=== PATIENT | female | born 1955 | race Caucasian/White ===

== ENCOUNTER 2021-07-16 19:31 | Emergency (ER) | payer OTHER ==
[~2021-07-16] VITALS: Ht 167.6 cm; Wt 69.4 kg
[2021-07-16 19:46] VITALS: BP 104/62
--- NOTE | 2021-07-16 22:30 | NUR ---
Dr. Espinosa examining patient.
[2021-07-16] MEDS ORDERED: NACL 0.9% 1,000 ML IV ONE (22:35)
[2021-07-16] MEDS ORDERED: KETOROLAC 30 MG/ML VIAL IVP ONE (22:35)
--- NOTE | 2021-07-16 23:11 | NUR ---
XRAY AT BEDSIDE Addendum: 07/17/21 at 0034 by MARIA FERNANDA Amendment werner in [facility] - 07/17/21 at 0035 by MARIA FERNANDA PT TO CAT SCAN
[2021-07-16 23:42] LABS: HEMATOCRIT 43.1 % (36-48); HEMOGLOBIN 14.4 g/dL (12.0-16.0); MEAN CORPUSCULAR HEMOGLOBIN 30 pg (27-31); MEAN CORPUSCULAR HGB CONC 33 g/dL (33-37); MEAN CORPUSCULAR VOLUME 90.8 fL (80-94); PLATELET COUNT (AUTO) 113 K/uL (140-450); RED BLOOD CELL COUNT(AUTO) 4.75 MIL/uL (4.20-5.40); RED CELL DISTRIBUTION WIDTH 13.8 % (11.6-13.7); WHITE BLOOD COUNT (AUTO) 8.3 K/uL (4.8-10.8)
[2021-07-17 00:06] LABS: ALBUMIN 3.4 g/dL (3.4-5.0); ANION GAP 9.4 (8-16); CREATININE 0.9 mg/dL (0.6-1.3); POTASSIUM 4.4 mmol/L (3.5-5.1); TOTAL BILIRUBIN 0.5 mg/dL (0.0-1.0)
[2021-07-17 00:11] LABS: EOSINOPHILS % (MANUAL) 1 % (0-4); LYMPHOCYTES % (MANUAL) 35 % (20-46); MONOCYTES % (MANUAL) 13 % (5-12)
--- NOTE | 2021-07-17 01:02 | NUR ---
PT UP TO BATHROOM GAIT STEADY
--- NOTE | 2021-07-17 01:40 | NUR ---
PT RESTING IN BED. PENDING ALL LAB RESULTS. RESP EVEN AND UNLABORED. SIDE RAILS UP X1.
[2021-07-17 01:56] LABS: APPEARANCE,URINE CLEAR (CLEAR); BILIRUBIN,URINE NEGATIVE (NEGATIVE); BLOOD, URINE TRACE-I (NEGATIVE); COLOR,URINE YELLOW (YELLOW); LEUKOCYTE ESTERASE ,URINE NEGATIVE (NEGATIVE); NITRITE, URINE NEGATIVE (NEGATIVE); UGLUCOSE NEGATIVE (NEGATIVE)
[2021-07-17 02:13] LABS: RBC,URINE 0-5 /HPF (0-5); WBC,URINE 0-5 /HPF (0-5)
[2021-07-17] MEDS ORDERED: NAPR-54 PO (02:26)
[2021-07-17 02:37] VITALS: BP 93/44
--- NOTE | 2021-07-17 02:38 | NUR ---
Chart checked and completed.
== END 2021-07-17 02:37 | disposition home or self-care (01) ==
LOC: MED 19:31
DX: B34.9 Viral infection, unspecified (principal); E11.9 Type 2 diabetes mellitus without complications; Z79.1 Long term (current) use of non-steroidal anti-inflammatories (NSAID)
CPT/HCPCS: 36415; 71045; 80053; 81001; 81025; 85025; 87040; 96361; 96374; 99284; J1885; J7030